=== PATIENT | female | born 1990 | race Caucasian/White ===

== ENCOUNTER 2022-11-01 07:28 | Day surgery (SDC) | payer MEDICAID ==
[~2022-11-01] VITALS: Ht 172.7 cm; Wt 65.8 kg
[2022-11-01 08:10] LABS: HCG,QUAL RESULT NEGATIVE (NEGATIVE)
[2022-11-01] MEDS: fentaNYL CITRATE/PF 100 MCG/2 ML AMP ONE ×6 (08:36→08:59)
[2022-11-01] MEDS: MIDAZOLAM HCL 5 MG/5 ML VIAL ONE ×6 (08:36→08:59)
[2022-11-01] MEDS ORDERED: DIPHENHYDRAMINE INJ 50 MG/ML VIAL ONE (08:43)
[2022-11-01 14:08] VITALS: BP_SYST 120
== END 2022-11-01 10:11 | disposition home or self-care (01) ==
LOC: SDS 07:28 → SMU 07:29 → SDS 10:11
PROVIDERS: ATTEND Internal Medicine
DX: K52.9 Noninfective gastroenteritis and colitis, unspecified (principal); K64.8 Other hemorrhoids; Z20.822 Contact with and (suspected) exposure to COVID-19
CPT/HCPCS: 36415 ×2; 45380; 87426; 84703; 88305; 99152; 99153; U0003; G0378; J1200; J2250; J3010